=== PATIENT | female | born 1980 | race American Indian/Alaskan Native ===

== ENCOUNTER 2017-11-14 06:41 | Emergency (ER) | payer SELFPAY ==
[2017-11-14 07:05] VITALS: BP 157/107
[2017-11-14 08:56] LABS: Bilirubin,Urine NEG (Negative); Blood,Urine NEG (Negative); Color,Urine Yellow (Yellow); Mucus,Urine FEW /HPF; Nitrite,Urine NEG (Negative); Protein,Urine <15 mg/dL mg/dL (Negative); Urobilinogen,Urine < 2.0 mg/dL (<2.0)
[2017-11-14 09:19] LABS: HCG Qualitative,Urine Negative (Negative)
== END 2017-11-14 12:09 ==
LOC: ED 06:41
DX: R10.2 Pelvic and perineal pain (principal); Z53.21 Procedure and treatment not carried out due to patient leaving prior to being seen by health care provider
CPT/HCPCS: 81001; 81025